=== PATIENT | female | born 1960 | race Caucasian/White ===

== ENCOUNTER 2016-08-05 15:09 | Emergency (ER) | payer MEDICARE, MEDICAID ==
[~2016-08-05 15:09] MED LIST: Donnatal Elixir 16.2 MG/5 ML UDCUP ONE
[2016-08-05 16:34] LABS: #Eosinphils 0.1 thou/uL (0.0-0.7); #Lymphocytes 3.3 thou/uL (1.20-3.40); #Monocytes 0.6 thou/uL (0.11-0.59); #Neutrophils 6.7 thou/uL (1.40-6.50); %Basophils 0.5 % (0.0-1.0); %Eosinophils 1.3 % (0.0-10.0); %Lymphocytes 30.6 % (21.0-51.0); %Monocytes 5.3 % (0.0-10.0); %Neutrophils 62.4 % (42.0-75.0); Hemoglobin 13.7 g/dL (12.0-16.0); Mean Corpuscular HGB CONC 33.5 g/dL (32.0-36.0); Mean Corpuscular Hemoglobin 30.9 pg (27.0-31.0); Mean Corpuscular Volume 92.1 fl (81.0-99.0); Mean Platelet Volume 7.4 fL (7.4-10.4); Platelet Count 265 thou/uL (130-400); RBC Distribution Width 13.5 % (11.5-14.5); Red Blood Cell (RBC) Count 4.45 mill/uL (4.20-5.40); White Blood Cell (WBC) Count 10.8 thou/uL (4.8-10.8)
[2016-08-05 16:35] LABS: INR-International Normal Ratio 0.9; PTT 26.6 SEC (22.9-36.1); Prothrombin Time 12.7 SEC (12.0-14.7)
[2016-08-05 16:46] LABS: ALT (SGPT) 46 U/L (8-55); AST (SGOT) 16 U/L (5-34); Albumin 4.5 g/dL (3.5-5.0); Alkaline Phosphatase 88 U/L (40-150); Anion Gap 16 mmol/L (10-20); BUN (Urea Nitrogen) 15 mg/dL (9.8-20.1); Bilirubin, Total 0.3 mg/dL (0.2-1.2); CK (CPK) 78 U/L (29-168); Calc. Creatinine Clearance 0 mL/min (70-130); Calcium 9.5 mg/dL (7.8-10.44); Carbon Dioxide 21 mmol/L (22-29); Chloride 108 mmol/L (98-107); Estimated GFR-MDRD 63; Globulin 2.5 g/dL (2.4-3.5); Glucose 98 mg/dL (70-105); Magnesium 2.3 mg/dL (1.6-2.6); Sodium 141 mmol/L (136-145)
[2016-08-05 16:48] LABS: CKMB 0.9 ng/mL (0-6.6); Troponin I Less than 0.010 ng/mL (< 0.028)
[2016-08-05] MEDS ORDERED: Ketorolac Tromethamine 30 MG/ML VIAL ONE (16:51)
[2016-08-05] MEDS ORDERED: Aspirin 325 MG TAB ONE (16:51)
[2016-08-05] MEDS ORDERED: Mag-Al Plus 1200 MG/1200 MG/120 MG/30 ML UDCUP ONE (17:17)
[2016-08-05] MEDS ORDERED: Donnatal Elixir 16.2 MG/5 ML UDCUP ONE (17:17)
[2016-08-05] MEDS ORDERED: Lidocaine Viscous Sol 2% 15 ml UD Cup ONE (17:17)
[2016-08-05] MEDS ORDERED: Diazepam 10 MG/2 ML SYRINGE ONE (17:17)
--- NOTE | 2016-08-05 19:06 | RAD ---
UPRIGHT PORTABLE CHEST ONE VIEW: History: 56-year-old female with chest pain. Comparison: 03-15-16 FINDINGS: Inspiration is poor. Large body habitus somewhat lowers the sensitivity of this study. Anterior cerv ical fusion changes of the lower cervical spine. No confluent pneumonia, overt edema, or pleural eff usion. IMPRESSION: No acute intrathoracic disease. Stable from prior study. POS: [facility]
== END 2016-08-05 18:30 | disposition home or self-care (01) ==
LOC: MADERS 15:09
DX: K21.0 Gastro-esophageal reflux disease with esophagitis (principal); K22.4 Dyskinesia of esophagus; E78.5 Hyperlipidemia, unspecified; J45.909 Unspecified asthma, uncomplicated; J44.9 Chronic obstructive pulmonary disease, unspecified; F31.9 Bipolar disorder, unspecified; F41.9 Anxiety disorder, unspecified; Z87.891 Personal history of nicotine dependence; Z86.73 Personal history of transient ischemic attack (TIA), and cerebral infarction without residual deficits; Z79.891 Long term (current) use of opiate analgesic; Z79.899 Other long term (current) drug therapy
CPT/HCPCS: 36415; 71010; 80053; 82550; 82553; 83735; 83880; 84484; 85025; 85610; 85730; 93005; 94760; 96374; J1885; J3360

== ENCOUNTER 2016-09-26 08:18 | Outpatient (CLI) | payer MEDICARE, MEDICAID ==
[2016-09-26] MEDS ORDERED: Iopamidol 370 76% 100 ML VIAL ONE (09:03)
--- NOTE | 2016-09-26 09:50 | CT ---
CT ABDOMEN AND PELVIS WITH IV CONTRAST HISTORY: Epigastric pain. COMPARISON: CT abdomen and pelvis dated 10/28/2013. TECHNIQUE: Multiple axial tomograms obtained through the abdomen and pelvis with IV enhancement. Oral contrast was given. FINDINGS: The lung bases are clear. The liver, spleen, and pancreas are unremarkable. The stomach and duodenum appear unremarkable. No evidence of a diaphragmatic hernia. Small bowel loops appear normal. The appendix is not identified. The colon is unremarkable. The adrenal glands and kidneys are unremarkable. No hydronephrosis. No urinary tract calculus. Th e urinary bladder is unremarkable. The aorta is of normal caliber. No adenopathy. IMPRESSION: No evidence of an acute process identified in the abdomen or pelvis. POS: [facility]
== END 2016-09-26 08:19 | disposition home or self-care (01) ==
LOC: MADCT 08:18
PROVIDERS: ATTEND Obstetrics & Gynecology
DX: R10.13 Epigastric pain (principal)
CPT/HCPCS: 74177

== ENCOUNTER 2017-08-26 11:47 | Outpatient (CLI) | payer MEDICARE, OTHER ==
--- NOTE | 2017-08-26 13:44 | CT ---
NONCONTRAST CT HEAD: Date: 08-26-17 History: Patient having headaches. History of fall in June. Comparison: 05-02-11 FINDINGS: There is no evidence of a hemorrhage, acute infarction, mass effect, or midline shift. Ventricular sy stem is normal in size, shape, and position. No calvarial fracture is seen. Paranasal sinuses and lef t mastoid air cells are clear. There are post-surgical changes related to right mastoidectomy, stable from prior study. CT scan of the head is overall unchanged when compared to the prior exam. IMPRESSION: No acute intracranial abnormalities demonstrated. POS: [facility]
== END 2017-08-26 11:48 | disposition home or self-care (01) ==
LOC: MADCT 11:47
PROVIDERS: ATTEND Obstetrics & Gynecology
DX: G44.319 Acute post-traumatic headache, not intractable (principal)
CPT/HCPCS: 70450

== ENCOUNTER 2019-01-31 14:41 | Emergency (ER) | payer MEDICARE, OTHER ==
[~2019-01-31 14:41] MED LIST changes: -Donnatal Elixir 16.2 MG/5 ML UDCUP ONE; +Iopamidol 370 76% 100 ML VIAL ONE
[2019-01-31] MEDS ORDERED: Pantoprazole 40 MG VIAL ONE (15:45)
[2019-01-31] MEDS ORDERED: Sodium Chloride 0.9% 1,000 ML ONE (15:45)
[2019-01-31] MEDS ORDERED: Ondansetron PF 4 MG/2 ML Vial ONE (15:45)
[2019-01-31 15:52] LABS: Bilirubin Negative (Negative); Blood, Urine Trace (Negative); Clarity Slightly Cloudy (Clear); Glucose, Urine (Dipstick) Negative (Negative); Leukocyte Small (Negative); Nitrite Negative (Negative); Protein, Urine (Dipstick) Negative (Neg-Trace); Urobilinogen 0.2 mg/dL (Less than 2)
[2019-01-31 15:57] LABS: #Basophils 0.1 thou/uL (0.0-0.2); #Eosinphils 0.1 thou/uL (0.0-0.7); #Lymphocytes 2.2 thou/uL (1.20-3.40); #Monocytes 0.3 thou/uL (0.11-0.59); %Basophils 1.1 % (0.0-1.0); %Eosinophils 2.6 % (0.0-10.0); %Lymphocytes 38.8 % (21.0-51.0); %Monocytes 5.4 % (0.0-10.0); %Neutrophils 52.1 % (42.0-75.0); Hemoglobin 11.7 g/dL (12.0-16.0); Hypochromia SLIGHT = 6-15 cells (100X) (0-5/hpf); MDiff Complete? YES; Mean Corpuscular HGB CONC 29.6 g/dL (32.0-36.0); Mean Corpuscular Hemoglobin 26.3 pg (27.0-31.0); Mean Corpuscular Volume 88.7 fL (78.0-98.0); Mean Platelet Volume 7.8 fL (7.4-10.4); Platelet Count 270 thou/uL (130-400); Platelet Morphology Comment Appears Adequate; RBC Distribution Width 13.6 % (11.5-14.5); Red Blood Cell (RBC) Count 4.46 mill/uL (4.20-5.40); White Blood Cell (WBC) Count 5.7 thou/uL (4.8-10.8)
[2019-01-31 16:01] LABS: CRP (Inflammatory) 0.84 mg/dL (= or < 0.5)
[2019-01-31 16:02] LABS: Bacteria/HPF Rare-Few HPF (None Seen); RBC/HPF 0-3 HPF (0-3); WBC/HPF 21-50 HPF (0-3)
[2019-01-31 16:03] LABS: ALT (SGPT) 23 U/L (8-55); AST (SGOT) 20 U/L (5-34); Albumin 4.2 g/dL (3.5-5.0); Alkaline Phosphatase 78 U/L (40-110); Anion Gap 16 mmol/L (10-20); BUN (Urea Nitrogen) 9 mg/dL (9.8-20.1); Bilirubin, Total 0.4 mg/dL (0.2-1.2); Calc. Creatinine Clearance 0 mL/min (70-130); Calcium 9.6 mg/dL (7.8-10.44); Carbon Dioxide 22 mmol/L (22-29); Chloride 110 mmol/L (98-107); Estimated GFR-MDRD 77; Globulin 2.8 g/dL (2.4-3.5); Glucose 96 mg/dL (70-105); Lipase 12 U/L (8-78); Potassium 3.9 mmol/L (3.5-5.1); Sodium 144 mmol/L (136-145)
--- NOTE | 2019-01-31 16:50 | RAD ---
PORTABLE CHEST ONE VIEW: Date: 01-31-19 Time: 4:20 p.m. History: Cough. FINDINGS: Comparison is made with exam from 06-03-18. The heart size is normal. The lungs are expanded without lobar consolidation, pneumothoraces, kostas p ulmonary edema or pleural effusions. IMPRESSION: No radiographic evidence of acute cardiopulmonary process. POS: [facility]
--- NOTE | 2019-01-31 16:57 | CT ---
CT ABDOMEN AND PELVIS WITH IV CONTRAST: History: Abdominal pain. Comparison: 09-26-16 FINDINGS: The lung bases are clear. The liver, spleen, pancreas, adrenal glands and left kidney are normal. The re is scarring in the right kidney. No calcified gallstones are seen. No free air, free fluid, or lym phadenopathy is seen in the abdomen or pelvis. An abnormal appendix is not visualized. No aneurysmal dilatation of the abdominal aorta is seen. The small bowel loops are not abnormally dilated. There ar e degenerative changes in the spine. IMPRESSION: No acute process. POS: [facility]
[2019-01-31] MEDS ORDERED: cefTRIAXone\\ROCEPHIN 1 GM VIAL ONE (17:33)
== END 2019-01-31 17:47 | disposition home or self-care (01) ==
LOC: MADERS 14:41
DX: K29.00 Acute gastritis without bleeding (principal); N39.0 Urinary tract infection, site not specified; M19.90 Unspecified osteoarthritis, unspecified site; E78.5 Hyperlipidemia, unspecified; E78.00 Pure hypercholesterolemia, unspecified; J44.9 Chronic obstructive pulmonary disease, unspecified; F41.9 Anxiety disorder, unspecified; F31.9 Bipolar disorder, unspecified; Z87.891 Personal history of nicotine dependence; Z79.899 Other long term (current) drug therapy; Z79.51 Long term (current) use of inhaled steroids; Z79.891 Long term (current) use of opiate analgesic
CPT/HCPCS: 71045; 74177; 80053; 81003; 81015; 82150; 83690; 85025; 86140; 96361; 96374; 96375; C9113; J0696; J2405; J7050; Q9967

== ENCOUNTER 2020-08-04 10:42 | Outpatient (CLI) | payer OTHER | END 2020-08-04 10:43 | disposition home or self-care (01) | LOC: MADLAB 10:42 → MADRAD 10:43 | PROVIDERS: ATTEND Physician Assistant | DX: R60.0 Localized edema (principal); M19.072 Primary osteoarthritis, left ankle and foot ==

== ENCOUNTER 2022-12-01 14:38 | Emergency (ER) | payer OTHER | END 2022-12-01 15:14 | disposition home or self-care (01) | LOC: MADERS 14:38 | DX: Z02.79 Encounter for issue of other medical certificate (principal); J44.9 Chronic obstructive pulmonary disease, unspecified; Z79.899 Other long term (current) drug therapy; Z87.891 Personal history of nicotine dependence | CPT/HCPCS: 99281 ==

== ENCOUNTER 2023-04-20 10:41 | Emergency (ER) | payer MEDICARE, OTHER ==
[2023-04-20] MEDS ORDERED: Ipratropium/Albuterol 3 ML NEB ONE (11:13)
[2023-04-20] MEDS ORDERED: Ibuprofen 600 MG TAB ONE (11:14)
[2023-04-20] MEDS ORDERED: methylPREDNISolone Acetate 80 mg (1 mL) VIAL ONE (12:16)
[2023-04-20] MEDS ORDERED: Oseltamivir 75 MG CAP ONE (12:16)
== END 2023-04-20 12:25 | disposition home or self-care (01) ==
LOC: MADERS 10:41
DX: J10.1 Influenza due to other identified influenza virus with other respiratory manifestations (principal); J44.89 Other specified chronic obstructive pulmonary disease; Z87.891 Personal history of nicotine dependence; Z86.73 Personal history of transient ischemic attack (TIA), and cerebral infarction without residual deficits; Z79.899 Other long term (current) drug therapy
CPT/HCPCS: 71046; 87070; 87205; 87635; 87804; 94640; 96372; J1040; J7620

== ENCOUNTER 2024-03-17 13:40 | Emergency (ER) | payer MEDICARE, OTHER ==
[2024-03-17] MEDS ORDERED: Ipratropium/Albuterol 3 ML NEB ONE ×2 (14:15→16:09)
[2024-03-17] MEDS ORDERED: predniSONE 20 MG TAB ONE (14:15)
[2024-03-17 14:49] LABS: ALT (SGPT) 21 U/L (8-55); AST (SGOT) 16 U/L (5-34); Albumin 3.4 g/dL (3.4-4.8); Alkaline Phosphatase 85 U/L (40-110); Anion Gap 15 mmol/L (10-20); BUN (Urea Nitrogen) 5 mg/dL (9.8-20.1); Bilirubin, Total 0.5 mg/dL (0.2-1.2); Calc. Creatinine Clearance 0 mL/min (70-130); Calcium 9.4 mg/dL (7.8-10.44); Carbon Dioxide 28 mmol/L (23-31); Chloride 101 mmol/L (98-107); Estimated GFR 85; Globulin 3.8 g/dL (2.4-3.5); Glucose 130 mg/dL (80-115); Potassium 3.2 mmol/L (3.5-5.1); Protein, Total 7.2 g/dL (5.8-8.1); Sodium 141 mmol/L (136-145)
[2024-03-17 14:51] LABS: Band 6 % (5-11); Eosinophils 2 % (0-10); Hematocrit 42.7 % (36.0-47.0); Hemoglobin 13.3 g/dL (12.0-16.0); Lymphocytes 36 % (21-51); MDiff Complete? YES; Mean Corpuscular HGB CONC 31.2 g/dL (32.0-36.0); Mean Corpuscular Hemoglobin 28.3 pg (27.0-31.0); Mean Corpuscular Volume 90.7 fl (78.0-98.0); Monocytes 2 % (0-10); Neutrophil 54 % (42-75); Platelet Adequacy Comment Appears Adequate; Platelet Count 237 10x3/uL (130-400); RBC Distribution Width 12.7 % (11.5-14.5); Red Blood Cell (RBC) Count 4.71 mill/uL (4.20-5.40); Troponin I 0.011 ng/mL (< 0.028); White Blood Cell (WBC) Count 5.2 10x3/uL (4.8-10.8)
[2024-03-17] MEDS ORDERED: methylPREDNISolone Sod Succ/PF 125 MG/2 ML VIAL ONE (16:13)
[2024-03-17] MEDS ORDERED: Benzonatate 100 MG CAP ONE (16:24)
[2024-03-17 16:51] LABS: Base Excess-Venous 3.8 mmol/L (-2.0 to 3.0); Bicarbonate (HCO3v) 28.9 mmol/L (22.0-28.0); CO2 Tension (PvCO2) 44.4 mmHg (42.0-51.0); Calcium, Ionized 1.12 mmol/L (1.15-1.33); Chloride 102 mmol/L (98-107); Hemoglobin - Calc 15.2 g/dL (12.0-16.0); Potassium 3.1 mmol/L (3.5-5.1); Sodium 142 mmol/L (138-145); T. Carbon Dioxide 30.3 mmol/L (22.0-28.0); vO2 Saturation-calc 85.7 % (60.0-85.0)
[2024-03-17] MEDS ORDERED: Albuterol 200 PUFF (6.7GM INHALER) ONE (17:15)
== END 2024-03-17 17:30 | disposition home or self-care (01) ==
LOC: MADERS 13:40
DX: J44.1 Chronic obstructive pulmonary disease with (acute) exacerbation (principal); J06.9 Acute upper respiratory infection, unspecified; Z86.73 Personal history of transient ischemic attack (TIA), and cerebral infarction without residual deficits; Z87.891 Personal history of nicotine dependence
CPT/HCPCS: 36415; 71045; 80053; 82330; 82803; 83605; 83880; 84484; 85025; 87428; 93005; 94760; 96374; J2919; J7512; J7620